=== PATIENT | female | born 2000 | race Two or more races ===

== ENCOUNTER 2019-05-27 04:54 | Emergency (ER) | payer SELFPAY ==
[~2019-05-27] VITALS: Ht 165.1 cm; Wt 68.0 kg
[~2019-05-27 04:54] MED LIST: DICY10CA3 PO; ONDA4TAB10 SL; PANT40TA77 PO
[2019-05-27 05:03] VITALS: BP 129/85
[2019-05-27] MEDS ORDERED: HYDR-3164 PO (05:22)
[2019-05-27] MEDS ORDERED: SULF1TAB24 PO (05:22)
[2019-05-27] MEDS ORDERED: CEPH500C PO (05:22)
[2019-05-27] MEDS ORDERED: LIDOCAINE 1%/EPI 1:100,000 20 ML VIAL. INJ ONE (05:30)
--- NOTE | 2019-05-27 05:30 | PHYS DOC ---
Past Medical History Past Medical History: No Pertinent History Past Surgical History: No Surgical History Alcohol Use: None Drug Use: None Adult General Chief Complaint Chief Complaint: LOWER EXT PAIN HPI HPI Patient is a 19 year old [female] who presents with [pain in her tailbone]. Pt reports intense pain right below her tailbone that feels swollen. She rates the pain a 10/10 and states it worsens while sitting or lying on her back. She denies radiation of pain. Review of Systems Review of Systems Constitutional: Denies fever or chills Eyes: Denies change in visual acuity, redness, or eye pain HENT: Denies nasal congestion or sore throat Respiratory: Denies cough or shortness of breath Cardiovascular: No additional information not addressed in HPI GI: Denies abdominal pain, nausea, vomiting, bloody stools or diarrhea : Denies dysuria or hematuria Musculoskeletal: Denies back pain or joint pain Integument: Denies rash or skin lesions. Admits to pain in region overlying tailbone Neurologic: Denies headache, focal weakness or sensory changes All other systems were reviewed and found to be within normal limits, except as documented in this note. Current Medications Current Medications Current Medications Medications (Trade) Dose Ordered Sig/[place] Start Time Stop Time Status Last Admin Dose Admin Lidocaine/ Epinephrine (LIDOCAINE 1%-EPI 1:100,000 Multi-Dose) 20 ml 1X ONCE 05/27/19 05:30 05/27/19 05:31 DC 05/27/19 05:30 20 ML Allergies Allergies Allergies Coded Allergies Type Severity Reaction Last Updated Verified No Known Drug Allergies 10/18/16 No Physical Exam Physical Exam Constitutional: Well developed, well nourished, no acute distress, non-toxic appearance. HENT: Normocephalic, atraumatic, bilateral external ears normal, oropharynx moist, no oral exudates, nose normal. Eyes: PERRLA, EOMI, conjunctiva normal, no discharge. Neck: Normal range of motion, no tenderness, supple, no stridor. Pulmonary: Normal respiratory effort no increased work of breathing no obvious chest wall trauma Abdomen: Bowel sounds normal, soft, no tenderness, no masses, no pulsatile masses. Skin: Warm, dry, no erythema, no rash. Back: No tenderness, no CVA tenderness. [4x3 cm induration that is exquisitely tender to palpation in the pilonidal region] Extremities: No tenderness, no cyanosis, no clubbing, ROM intact, no edema. Neurologic: Alert and oriented X 3, normal motor function, normal sensory function, no focal deficits noted. Psychologic: Affect normal, judgement normal, mood normal. Current Patient Data Vital Signs Vital Signs Date Time Temp Pulse Resp B/P (MAP) Pulse Ox O2 Delivery O2 Flow Rate FiO2 05/27/19 05:03 98.6 103 22 129/85 (100) 99 Room Air 98.6 EKG EKG [] Radiology/Procedures Radiology/Procedures [] Course & Med Decision Making Course & Med Decision Making Pertinent Labs and Imaging studies reviewed. (See chart for details) [Pt is a 19 year old female presenting with pain in her tailbone. She states pain and swelling is located right below her tailbone and rates it a 10/10. A female nurse was brought into the room as a respiratory clinician before the physical exam was performed. On visual inspection a 4x3cm indurated swelling that is tender to palpation was noted in the pilonidal region. Discussed with the patient and her mother that she would benefit from an Incision and drainage. After describing the procedure the patient agreed to proceed with an I&D.] procedure note lido with epi betadine prior 1.5 cm incision 11 blade, excellent pus returned approximately 6-8 ml total, loculations explored, wound packed pt tolerated well. home with abx, pain control and f/u if not improving in 2-3 days. Dragon Disclaimer Dragon Disclaimer This electronic medical record was generated, in whole or in part, using a voice recognition dictation system. Departure Departure Impression: Primary Impression: Pilonidal abscess Disposition: HOME, SELF-CARE Condition: IMPROVED Referrals: NO PCP (PCP) Scripts Hydrocodone/Apap 5-325 (NORCO 5-325 TABLET) 1 Each Tablet 1-2 EACH PO PRN Q6HRS PRN for PAIN, #15 as needed for pain Prov: CIRO VAUGHAN MD 05/27/19 Sulfamethoxazole/Trimethoprim (BACTRIM DS TABLET) 1 Each Tablet 1 TAB PO BID, #14 TAB Prov: CIRO VAUGHAN MD 05/27/19 Cephalexin (CEPHALEXIN) 500 Mg Capsule 1 CAP PO QID, #40 CAP Prov: CIRO VAUGHAN MD 05/27/19 CIRO VAUGHAN MD May 27, 2019 05:30
== END 2019-05-27 06:05 | disposition home or self-care (01) ==
LOC: ER 04:54
DX: L05.01 Pilonidal cyst with abscess (principal)
CPT/HCPCS: 10080; 99284; J3490